=== PATIENT | male | born 1980 | race Caucasian/White ===

== ENCOUNTER 2018-08-26 08:50 | Emergency (ER) | payer SELFPAY ==
[~2018-08-26] VITALS: Ht 177.8 cm; Wt 98.8 kg
[2018-08-26 08:53] VITALS: BP 154/93; PULSE 86; RESP 20; Ht 177.8 cm; Wt 98.8 kg
[2018-08-26] MEDS ORDERED: LIDOCAINE 1% (MPF) 5 ML VIAL INJ ONE (09:30)
[2018-08-26] MEDS ORDERED: CEPH-443 PO (11:30)
[2018-08-26] MEDS ORDERED: IBUP-1542 PO (11:30)
--- NOTE | 2018-08-26 11:46 | ERD ---
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 Reports that he was on a ladder and he accidentally fell, try to catch his fall and sliced his right fifth finger. Reports that he works in construction. Reports that he still able to bend his fingers without any difficulty. Denies any fever, chills, nausea, vomiting, diarrhea, neck stiffness, headache, loss of sensation, loss of range of motion, increased redness. ROS All systems reviewed and are negative except as per history of present illness. Medications Home Meds Active Scripts Ibuprofen* (Motrin*) 600 Mg Tab, 600 MG PO Q6, #30 TAB Prov:TERESA OWENS PA-C 08/26/18 Cephalexin* (Keflex*) 500 Mg Capsule, 500 MG PO QID for 7 Days, CAP Prov:TERESA OWENS PA-C 08/26/18 Allergies Allergies: Coded Allergies: No Known Allergy (Unverified , 08/26/18) PMhx/Soc Medical and Surgical Hx: pt denies Medical Hx, pt denies Surgical Hx Hx Alcohol Use: No Hx Substance Use: No Hx Tobacco Use: No Smoking Status: Never smoker FmHx Family History: No diabetes, No coronary disease Physical Exam Vitals Vital Signs Date Temp Pulse Resp B/P (MAP) Pulse Ox O2 O2 Flow FiO2 Time Delivery Rate 08/26/18 98.4 86 20 154/93 98 08:53 (113) Physical Exam Const: [id number], well-nourished. In no acute distress. Head: Atraumatic, normocephalic Eyes: Normal Conjunctiva without injection ENT: Normal external ear, nose and mouth. Neck: Full range of motion. No meningismus. Resp: Clear to auscultation bilaterally. No wheezing, rhonchi, rales, or crackles. No accessory muscle use. No retractions. Cardio: Regular rate and rhythm, no murmurs Skin: No petechiae or rashes Back: No midline tenderness. No CVA tenderness. Ext: No cyanosis, or edema. Cap refill less than 2 seconds. Distal pulses intact bilaterally. 3 cm jagged laceration on the medial aspect of patient's distal right pinky fifth digit. Minimal bleeding noted. No active bleeding. Full r pearl of motion of the DIP, PIP, MCP joints bilaterally with flexion, extension. Neur: Awake and alert. Normal gait and coordination. Muscle strength 5/5. Sensation intact bilaterally. Psych: Normal Mood and Affect Results 24 hrs Current Medications Medications Dose Sig/Kamila Start Time Status Last (Trade) Ordered Route PRN Stop Time Admin Dose Reason Admin Lidocaine 5 ml ONCE ONCE 08/26/18 DC (Xylocaine INJ 09:30 1% (Mpf)) 08/26/18 09:31 Cefazolin 1 gm ONCE ONCE 08/26/18 DC 08/26/18 Sodium IM 12:00 12:02 (Ancef) 08/26/18 12:01 Procedures/MDM 37-year-old male patient with no significant past medical history presents to ED complaining of a laceration to his right fifth finger sustained at work today. Patient is afebrile and nontoxic-appearing. Patient patient's blood pressure is 154/93. Blood Pressure Assessment: Patient's blood pressure was elevated (>120/80) but appears stable without evidence of hypertension emergency or urgency. The patient was counseled about the risks of hypertension and urged to pursue outpatient monitoring and therapy within a week with their primary care physician. Patient gave consent to perform laceration repair. Laceration Repair by me: Anesthesia: 4 cc 1% lidocaine locally Location: 5th Right Pinky Finger Tendon/Joint/Nerves: No injury Foreign body: None detected after copious irrigation and exploration Technique: 3 4-0 Ethilon Simple Interrupted Sutures, 5 6-0 Vicryl Deep Dermal Sutures Complexity: No subcutaneous sutures/mucosal repair/edge excision Post Closure Length: [3] cm AMENDMENT: 08/26/2018 10:21:31 AM Lolis Flores M.D PROCEDURE: XR Finger. CLINICAL INDICATION: Trauma. Pain. TECHNIQUE: Three views of the right fifth finger are available for review. COMPARISON: None available FINDINGS: The osseous structures demonstrate normal alignment and mineralization. There is a nondisplaced fracture of the tuft of the right fifth distal phalanx. The joint spaces are well maintained. There is soft tissue edema overlying the fifth distal phalanx. No radiopaque foreign body is identified. IMPRESSION: Nondisplaced fracture of the tuft of the right fifth distal phalanx. RPTAT: HH PROCEDURE: XR Finger. CLINICAL INDICATION: Trauma. Pain. TECHNIQUE: Three views of the left fifth finger are available for review. COMPARISON: None available FINDINGS: The osseous structures demonstrate normal alignment and mineralization. There is a nondisplaced fracture of the tuft of the left fifth distal phalanx. The joint spaces are well maintained. There is soft tissue edema overlying the fifth distal phalanx. No radiopaque foreign body is identified. IMPRESSION: Nondisplaced fracture of the tuft of the left fifth distal phalanx. Patient has a nondisplaced fracture of the tuft of the left fifth distal phalanx, patient will be treated in the ED with Ancef 1 g here in the ED. Nasrin ent's bleeding was easily controlled in the department and there is no indication of anemia. Patient is neurovascularly intact. No evidence of compartment syndrome, neurologic injury, vascular injury, open joint, tendon laceration, or foreign body. Patient is appropriate for outpatient follow up. 48 hour wound check. Scar minimization instructions given. Instructed patient to return for suture removal in 7-10 days. Diagnosis: Finger Laceration Keflex was prescribed to patient for infection prevention. Recommended to f/u with hand surgeon. Instructed patient to return to the ED sooner for any worsening symptoms. Follow up with primary care physician in 1-2 days. Patient's questions were answered. Patient understood and agreed with discharge plan. Disclaimer: Inadvertent spelling and grammatical errors are likely due to EHR/dictation software use and do not reflect on the overall quality of patient care. Also, please note that the electronic time recorded on this note does not necessarily reflect the actual time of the patient encounter. Departure Diagnosis: Primary Impression: Finger laceration Encounter type: initial encounter Finger: little finger Damage to nail status: unspecified Foreign body presence: unspecified Laterality: left Qualified Codes: S61.217A - Laceration without foreign body of left little finger without damage to nail, initial encounter Condition: Stable Patient Instructions: Laceration, Hand Referrals: COMMUNITY CLINICS YOU HAVE RECEIVED A MEDICAL SCREENING EXAM AND THE RESULTS INDICATE THAT YOU DO NOT HAVE A CONDITION THAT REQUIRES URGENT TREATMENT IN THE EMERGENCY DEPARTMENT. FURTHER EVALUATION AND TREATMENT OF YOUR CONDITION CAN WAIT UNTIL YOU ARE SEEN IN YOUR DOCTORS OFFICE WITHIN THE NEXT 1-2 DAYS. IT IS YOUR RESPONSIBILITY TO MAKE AN APPOINTMENT FOR FOLOW-UP CARE. IF YOU HAVE A PRIMARY DOCTOR --you should call your primary doctor and schedule an appointment IF YOU DO NOT HAVE A PRIMARY DOCTOR YOU CAN CALL OUR PHYSICIAN REFERRAL HOTLINE AT IF YOU CAN NOT AFFORD TO SEE A PHYSICIAN YOU CAN CHOSE FROM THE FOLLOWING [facility] [address] [facility] [address] [facility] [address] [facility] [address] [facility] [address] [facility] [facility] [address] [facility]. [facility] YOU HAVE RECEIVED A MEDICAL SCREENING EXAM AND THE RESULTS INDICATE THAT YOU DO NOT HAVE A CONDITION THAT REQUIRES URGENT TREATMENT IN THE EMERGENCY DEPARTMENT. FURTHER EVALUATION AND TREATMENT OF YOUR CONDITION CAN WAIT UNTIL YOU ARE SEEN IN YOUR DOCTORS OFFICE WITHIN THE NEXT 1-2 DAYS. IT IS YOUR RESPONSIBILITY TO MAKE AN APPOINTMENT FOR FOLOW-UP CARE. IF YOU HAVE A PRIMARY DOCTOR --you should call your primary doctor and schedule and appointment IF YOU DO NOT HAVE A PRIMARY DOCTOR YOU CAN CALL OUR PHYSICIAN REFERRAL HOTLINE AT . IF YOU CAN NOT AFFORD TO SEE A PHYSICIAN YOU CAN CHOSE FROM THE FOLLOWING [facility] INSTITUTIONS: [facility] [address] [place] [address] [facility] [address] [place] [address] [facility] [address] [place] [address] [facility] Additional Instructions: Llame al doctor MAANA y tommy herrera INOCENCIO PARA DENTRO DE 2-3 SHANE para herrera remisin para sagar a un cirujano de la mano.Dgale a la secretaria que nosotros le instruimos hacer esta inocencio.Avise o llame si hollis condicin se empeora antes de la inocencio. Regresa aqui si peor o no mejor. WOUND CHECK:CONSULTE A HOLLIS MDICO EN 2 lópez para sagar HLOLIS HERIDA. SUTURE REMOVAL:CONSULTE A HOLLIS MDICO PARA SACAR HOLLIS PUNTOS.PARA LA [place] 5-6 lópez.EN OTRO LUGAR 7-10 lópez. TERESA OWENS PA-C Aug 26, 2018 11:46
[2018-08-26] MEDS ORDERED: CEFAZOLIN 1 GM INJ IM ONE (12:00)
== END 2018-08-26 12:33 | disposition home or self-care (01) ==
LOC: FTE 08:50
DX: S62.667A Nondisplaced fracture of distal phalanx of left little finger, initial encounter for closed fracture (principal); X58.XXXA Exposure to other specified factors, initial encounter; Y92.89 Other specified places as the place of occurrence of the external cause
CPT/HCPCS: 12002; 73140; 96372; 99284; J0690

== ENCOUNTER 2018-08-28 07:54 | Emergency (ER) | END 2018-08-28 08:56 | disposition home or self-care (01) ==

== ENCOUNTER 2018-09-01 10:08 | Emergency (ER) | payer SELFPAY ==
[~2018-09-01] VITALS: Wt 98.3 kg
[~2018-09-01 10:08] MED LIST: CEPH-443 PO; IBUP-1542 PO
[2018-09-01 10:10] VITALS: BP 132/71; PULSE 68; RESP 16
--- NOTE | 2018-09-01 11:19 | ERD ---
ER Documentation Chief Complaint Chief Complaint recheck on right 5th digit lac repair HPI Patient is a 37-year-old male who presents ER for concerns of wound recheck. I saw the patient 3 days ago and at that time advised the patient to return here for recheck of his skin as the skin was extremely macerated in appearance after bandage was removed. Today patient states that his skin color is normal. Patient continues to have no fevers or chills. Patient continues to have no worsening pain, redness or swelling. Patient denies any bleeding or discharge. ROS All systems reviewed and are negative except as per history of present illness. Medications Home Meds Active Scripts Ibuprofen* (Motrin*) 600 Mg Tab, 600 MG PO Q6, #30 TAB Prov:TERESA OWENS PA-C 08/26/18 Cephalexin* (Keflex*) 500 Mg Capsule, 500 MG PO QID for 7 Days, CAP Prov:TERESA OWENS PA-C 08/26/18 Allergies Allergies: Coded Allergies: No Known Allergy (Unverified , 09/01/18) PMhx/Soc Medical and Surgical Hx: pt denies Medical Hx, pt denies Surgical Hx Hx Alcohol Use: Yes Hx Substance Use: No Hx Tobacco Use: No Smoking Status: Never smoker FmHx Family History: No diabetes Physical Exam Vitals Vital Signs Date Temp Pulse Resp B/P (MAP) Pulse Ox O2 O2 Flow FiO2 Time Delivery Rate 09/01/18 98.2 68 16 132/71 98 10:10 (91) Physical Exam GENERAL: Well-developed, well-nourished male. Appears in no acute distress. HEAD: Normocephalic, atraumatic. EYES: Pupils are equally reactive bilaterally. EOMs grossly intact. No conjunctival erythema. EXTREMITIES: Equal pulses bilaterally. No peripheral clubbing, cyanosis or edema. No unilateral leg swelling. NEUROLOGIC: Alert and oriented. Moving all four extremities without any difficulty. Normal speech. Steady gait. SKIN: Finger is in a metal finger splint. Healing laceration noted to the right fifth digit. No wound dehiscence. [address] Normal skin color. Skin is no longer macerated. No active bleeding. No drainage. No fluctuance or induration. Normal range of motion of the affected digit at DIP, PIP and MCP joints. Normal cap refill. Procedures/MDM MEDICAL DECISION MAKING: This is a 37-year-old male who presents for a wound check. Vital signs were reviewed. Patient is afebrile. The wound appears to be healing well with no concerns of acute infection at this time. Patient's skin is no longer macerated and has normal color appearance. No wound drainage or wound dehiscence noted. Tetanus is up-to-date. Post-procedural wound care was discussed with the patient. Patient was advised to return in 3 days for suture removal. PRESCRIPTIONS: Continue to take antibiotics as prescribed. Complete full course. DISCHARGE: At this time, the patient is stable for discharge and outpatient management. Post-procedural wound care was discussed with the patient. I have instructed the patient to promptly return to the ER for any new or worsening symptoms including increasing pain, fever, warmth, redness or swelling. The patient and/or family expressed understanding of and agreement with this plan. All questions were answered. Home care instructions were provided. Patients blood pressure was elevated (>120/80) but appears stable without evidence of hypertensive emergency, hypertensive urgency or end-organ failure. I had discussion with the patient about the risks of hypertension. I have advised the patient to follow up with his/her primary care physician for outpatient monitoring and treatment for hypertension in 2-3 days. I have instructed the patient to return to the ER for any new or worsening symptoms including chest pain, shortness of breath, headache, blurred vision, confusion, nausea, vomiting or LOC. Disclaimer: Inadvertent spelling and grammatical errors are likely due to EHR/dictation software use and do not reflect on the overall quality of patient care. Also, please note that the electronic time recorded on this note does not necessarily reflect the actual time of the patient encounter. Departure Diagnosis: Primary Impression: Laceration re-check Condition: Stable Patient Instructions: Suture Care Referrals: COMMUNITY CLINICS YOU HAVE RECEIVED A MEDICAL SCREENING EXAM AND THE RESULTS INDICATE THAT YOU DO NOT HAVE A CONDITION THAT REQUIRES URGENT TREATMENT IN THE EMERGENCY DEPARTMENT. FURTHER EVALUATION AND TREATMENT OF YOUR CONDITION CAN WAIT UNTIL YOU ARE SEEN IN YOUR DOCTORS OFFICE WITHIN THE NEXT 1-2 DAYS. IT IS YOUR RESPONSIBILITY TO MAKE AN APPOINTMENT FOR FOLOW-UP CARE. IF YOU HAVE A PRIMARY DOCTOR --you should call your primary doctor and schedule an appointment IF YOU DO NOT HAVE A PRIMARY DOCTOR YOU CAN CALL OUR PHYSICIAN REFERRAL HOTLINE AT IF YOU CAN NOT AFFORD TO SEE A PHYSICIAN YOU CAN CHOSE FROM THE FOLLOWING [facility] CL[facility]ICS [facility] [address] [facility] [address] [address] [facility] [address] [facility] [address] [facility] [address] [facility] [address] [facility] [address] [facility]. [facility]. [address] [facility]. [facility] YOU HAVE RECEIVED A MEDICAL SCREENING EXAM AND THE RESULTS INDICATE THAT YOU DO NOT HAVE A CONDITION THAT REQUIRES URGENT TREATMENT IN THE EMERGENCY DEPARTMENT. FURTHER EVALUATION AND TREATMENT OF YOUR CONDITION CAN WAIT UNTIL YOU ARE SEEN IN YOUR DOCTORS OFFICE WITHIN THE NEXT 1-2 DAYS. IT IS YOUR RESPONSIBILITY TO MAKE AN APPOINTMENT FOR FOLOW-UP CARE. IF YOU HAVE A PRIMARY DOCTOR --you should call your primary doctor and schedule and appointment IF YOU DO NOT HAVE A PRIMARY DOCTOR YOU CAN CALL OUR PHYSICIAN REFERRAL HOTLINE AT . IF YOU CAN NOT AFFORD TO SEE A PHYSICIAN YOU CAN CHOSE FROM THE FOLLOWING [facility] INSTITUTIONS: [facility] [address] [place] [address] [facility] [address] [place] [address] [facility] [address] [place] [address] Additional Instructions: Return in 3 days for suture removal. KARYNA TENORIO PA-C Sep 01, 2018 11:19
== END 2018-09-01 12:07 | disposition home or self-care (01) ==
LOC: FTE 10:08
DX: Z48.01 Encounter for change or removal of surgical wound dressing (principal)
CPT/HCPCS: 99281

== ENCOUNTER 2018-09-04 10:51 | Emergency (ER) | payer SELFPAY ==
[~2018-09-04] VITALS: Wt 98.2 kg
[2018-09-04 11:01] VITALS: BP 154/98; PULSE 78; RESP 18
--- NOTE | 2018-09-04 13:14 | ERD ---
ER Documentation Chief Complaint Chief Complaint SUTURE REMOVAL TO 5TH DIGIT HPI 37-year-old male presenting for suture removal of the right fifth digit. Patient had sutures placed 10 days ago. Patient is right-hand dominant. Patient denies other medical problems. NKDA. Surgical history denies. Social history denies ROS All systems reviewed and are negative except as per history of present illness. Medications Home Meds Active Scripts Ibuprofen* (Motrin*) 600 Mg Tab, 600 MG PO Q6, #30 TAB Prov:TERESA OWENS PA-C 08/26/18 Cephalexin* (Keflex*) 500 Mg Capsule, 500 MG PO QID for 7 Days, CAP Prov:TERESA OWENS PA-C 08/26/18 Allergies Allergies: Coded Allergies: No Known Allergy (Unverified , 09/01/18) PMhx/Soc Medical and Surgical Hx: pt denies Medical Hx, pt denies Surgical Hx Hx Alcohol Use: Yes (occassional) Hx Substance Use: No Hx Tobacco Use: No FmHx Family History: No diabetes, No coronary disease, No other Physical Exam Vitals Vital Signs Date Temp Pulse Resp B/P (MAP) Pulse Ox O2 O2 Flow FiO2 Time Delivery Rate 09/04/18 98.3 78 18 154/98 99 11:01 (116) Physical Exam GENERAL: The patient is well-appearing, well-nourished, in no acute distress CHEST: Clear to auscultation bilaterally. There are no rales, wheezes or rhonchi. HEART: Regular rate and rhythm. No murmurs, clicks, rubs or gallops. No S3 or S4. EXTREMITIES: Full range of motion. Grossly neurovascularly intact. NEUROLOGIC: Alert and oriented. Sensation grossly intact. SKIN: Healed laceration site noted of the distal right fifth digit. No surrounding erythema or dehiscence of the wound. Procedures/MDM ER course: 3 sutures are removed without complication. Patient tolerated procedure well. Patient does have a distal tuft fracture seen so splint is reapplied. MDM: 37-year-old male presenting with distal tuft fracture and suture removal. Sutures removed without complication. Splint was reapplied. Patient is recommended to refrain from working for a few more days. Patient is discharged stricter precautions. All questions answered at discharge Departure Diagnosis: Primary Impression: Encounter for removal of sutures Condition: Stable Patient Instructions: Suture Removal, No Complication Referrals: [facility] YOU HAVE RECEIVED A MEDICAL SCREENING EXAM AND THE RESULTS INDICATE THAT YOU DO NOT HAVE A CONDITION THAT REQUIRES URGENT TREATMENT IN THE EMERGENCY DEPARTMENT. FURTHER EVALUATION AND TREATMENT OF YOUR CONDITION CAN WAIT UNTIL YOU ARE SEEN IN YOUR DOCTORS OFFICE WITHIN THE NEXT 1-2 DAYS. IT IS YOUR RESPONSIBILITY TO MAKE AN APPOINTMENT FOR FOLOW-UP CARE. IF YOU HAVE A PRIMARY DOCTOR --you should call your primary doctor and schedule an appointment IF YOU DO NOT HAVE A PRIMARY DOCTOR YOU CAN CALL OUR PHYSICIAN REFERRAL HOTLINE AT IF YOU CAN NOT AFFORD TO SEE A PHYSICIAN YOU CAN CHOSE FROM THE FOLLOWING [facility] [address] [facility] [address] [facility]. [facility] [address] [facility] [address] [facility]. [facility] [address] [facility]. [facility]. [address] Additional Instructions: FOLLOW UP WITH YOUR PRIMARY CARE PHYSICIAN TOMORROW.Return to this facility if you are not improving as expected. JAMES EDWARDS PA-C Sep 04, 2018 13:14
== END 2018-09-04 12:00 | disposition home or self-care (01) ==
LOC: FTE 10:51
DX: Z48.02 Encounter for removal of sutures (principal)
CPT/HCPCS: 99281